=== PATIENT | female | born 1950 ===

== ENCOUNTER 2018-05-14 18:16 | Inpatient (IN) | payer MEDICARE ==
[2018-05-14] MEDS ORDERED: Sodium Chloride 0.9% 1,000 ML IV ONE (19:51)
--- NOTE | 2018-05-14 19:51 | C.PDOC ---
History Of Present Illness 67 year old female presents to the ED c/o fever, cough, congestion and dyspnea on exertion for the past 2-3 days. Patient also reports having decreased appetite able to speak in complete sentences. Patient states she still smokes 3/4 pack a day. Patient denies rash, headache, nausea, vomit, diarrhea, CP, weakness, numbness. Time Seen by Provider: 05/14/18 19:51 Chief Complaint (Nursing): Fever History Per: Patient History/Exam Limitations: no limitations Onset/Duration Of Symptoms: Days (2-3) Current Symptoms Are (Timing): Still Present Location Of Pain: Sinus/es Associated Symptoms: Fever, Cough, Sinus Drainage, Nasal Congestion Severity: Moderate Pain Scale Rating Of: 4 Recent travel outside of the [place]: No Additional History Per: Patient Past Medical History Reviewed: Historical Data, Nursing Documentation, Vital Signs Vital Signs: Last Vital Signs Temp 100.9 F H 05/14/18 18:25 Pulse 98 H 05/14/18 18:25 Resp 24 05/14/18 18:25 BP 121/71 05/14/18 18:25 Pulse Ox 91 L 05/14/18 18:25 - Medical History PMH: Asthma, HTN Surgical History: No Surg Hx Family History: States: Unknown Family Hx - Social History Hx Alcohol Use: No Hx Substance Use: No - Immunization History Hx Tetanus Toxoid Vaccination: No Hx Influenza Vaccination: No Hx Pneumococcal Vaccination: No Review Of Systems Constitutional: Positive for: Fever. Negative for: Chills ENT: Positive for: Nose Discharge, Nose Congestion Cardiovascular: Negative for: Chest Pain Respiratory: Positive for: Cough, SOB with Excertion. Negative for: Shortness of Breath Gastrointestinal: Negative for: Nausea, Vomiting, Abdominal Pain, Diarrhea Musculoskeletal: Negative for: Back Pain Skin: Negative for: Rash Neurological: Negative for: Weakness, Numbness, Headache, Dizziness Psych: Negative for: Anxiety Physical Exam - Physical Exam Appears: Non-toxic, No Acute Distress Skin: Warm, Dry Head: Normacephalic Eye(s): bilateral: Normal Inspection Oral Mucosa: Moist Throat: No Erythema, No Exudate Neck: Supple Chest: Symmetrical Cardiovascular: Rhythm Regular Respiratory: Decreased Breath Sounds, No Rales, Rhonchi, Wheezing Gastrointestinal/Abdominal: Soft, No Tenderness, No Guarding, No Rebound Back: Normal Inspection Extremity: Normal ROM Extremity: Bilateral: Atraumatic, Normal Color And Temperature, Normal ROM Neurological/Psych: Oriented x3, Normal Speech, Normal Cognition Gait: Steady ED Course And Treatment - Laboratory Results Result Diagrams: 05/14/18 20:33 05/14/18 20:33 ECG: Interpreted By Me, Viewed By Me ECG Rhythm: Sinus Rhythm (68), L BBB, Nonspecific Changes O2 Sat by Pulse Oximetry: 91 Pulse Ox Interpretation: Abnormal Interpretation Of Abnormal: placed on 2l nc - Radiology CXR: Interpreted by Me, Viewed By Me CXR Interpretation: Yes: Infiltrates (rll?), COPD, Other (unchanged from 2015). No: Fracture, Pnemothorax Progress Note: Plan: - VBG. - EKG. - CXR. - Labs. - IV fluids. - Tylenol 975 mg PO. - Blood culture. - Influenza A B. - UA Disposition Discussed With : Luisito Eller Comment: accepted the pt on his service and took over the care at 11:02PM Doctor Will See Patient In The: Hospital Counseled Patient/Family Regarding: Studies Performed, Diagnosis - Disposition Disposition: ELOPEMENT - ER ONLY Disposition Time: 19:51 Condition: FAIR Forms: [employer] (Tajik) - POA Present On Arrival: Poor Glycemic Control - Clinical Impression Clinical Impression: Fever, Pneumonia - Scribe Statement The provider has reviewed the documentation as recorded by the Scribe Kashmir Umanzor All medical record entries made by the Scribe were at my direction and personally dictated by me. I have reviewed the chart and agree that the record accurately reflects my personal performance of the history, physical exam, medical decision making, and the department course for this patient. I have also personally directed, reviewed, and agree with the discharge instructions and disposition. Decision To Admit - Pt Status Changed To: Hospital Disposition Of: Inpatient - Admit Certification Admit to Inpatient:: After my assessment, the patient will require hospitalization for at least two midnights. This is because of the severity of symptoms shown, intensity of services needed, and/or the medical risk in this patient being treated as an outpatient. - InPatient: Physician Admission Certification:: After my assessment, the patient will require hospitalization for at least two midnights. This is because of the severity of symptoms shown, intensity of services needed, and/or the medical risk in this patient being treated as an outpatient. - . Bed Request Type: Regular Admitting Physician: Luisito Eller Patient Diagnosis: Fever, Pneumonia
[2018-05-14 20:40] LABS: BASO # 0.1 K/uL (0.0-0.2); BASO % 0.4 % (0.0-2.0); EOS % 0.1 % (0.0-4.0); HEMOGLOBIN 14.9 g/dL (11.0-16.0); LYMPH # 0.8 K/uL (1.0-4.3); LYMPH % 5.2 % (20.0-40.0); MEAN CELL VOLUME 86.3 fL (81.0-99.0); MEAN CORPUSCULAR HEMOGLOBIN 28.6 pg (27.0-31.0); MEAN CORPUSCULAR HGB CONC 33.2 g/dL (33.0-37.0); MEAN PLATELET VOLUME 9.7 fL (7.2-11.7); MONO # 1.2 K/uL (0.0-0.8); MONO % 7.5 % (0.0-10.0); NEUT # 13.6 K/uL (1.8-7.0); NEUT % 86.8 % (50.0-75.0); PLATELET COUNT 205 K/uL (130-400); RBC 5.19 Mil/uL (3.80-5.20); RED CELL DISTRIBUTION WIDTH 13.6 % (11.5-14.5); WHITE BLOOD COUNT 15.7 K/uL (4.8-10.8)
[2018-05-14 20:42] LABS: VENOUS BLOOD GAS BASE EXCESS -6.2 mmol/L (0.0-2.0); VENOUS BLOOD GAS PCO2 30 mmHg (40-60); VENOUS BLOOD GAS PO2 47 mm/Hg (30-55); VENOUS BLOOD PH 7.38 (7.32-7.43)
[2018-05-14] MEDS ORDERED: Piperacillin/Tazobact 3.375 gm 100 ML IVPB STA (20:45)
--- NOTE | 2018-05-14 20:47 | RAD ---
HISTORY: SOB COMPARISON: Chest x-ray performed 08/07/14 TECHNIQUE: Chest, one view. FINDINGS: LUNGS: Patchy right greater than left lower lobe infiltrates. Please note that chest x-ray has limited sensitivity for the detection of pulmonary masses. PLEURA: No significant pleural effusion identified. No definite pneumothorax . CARDIOVASCULAR: Heart size appears within normal limits. Atherosclerotic calcifications present. OSSEOUS STRUCTURES: Degenerative changes. VISUALIZED UPPER ABDOMEN: Unremarkable. OTHER FINDINGS: None. IMPRESSION: Patchy right greater than left lower lobe infiltrate.
[2018-05-14 20:48] LABS: INR 1.4; PROTHROMBIN TIME 15.1 SECONDS (9.7-12.2)
[2018-05-14 21:04] LABS: BANDS 3 % (0-2); LYMPHOCYTE 9 % (20-40); MONOCYTE 4 % (0-10); NEUTROPHIL 84 % (50-75); PLATELET ESTIMATE NORMAL (NORMAL); TOTAL CELLS COUNTED 100
[2018-05-14 21:10] LABS: ALB/GLOB RATIO 1.2 (1.0-2.1); ALBUMIN 3.9 g/dL (3.5-5.0); ALT/SGPT 21 U/L (9-52); AST/SGOT 19 U/L (14-36); B-TYPE NATRIURETIC PEPTIDE 258 pg/mL (0-900); BLOOD UREA NITROGEN 17 mg/dL (7-17); CALCIUM 8.8 mg/dl (8.6-10.4); GFR NON-AFRICAN AMERICAN > 60
[2018-05-14] MEDS ORDERED: MethylPREDNISolone 40 mg Vial ONE (23:46)
[2018-05-14] MEDS: MethylPREDNISolone 40 mg Vial IVP SCH (23:47)
[2018-05-15 05:16] LABS: BASO % 0.2 % (0.0-2.0); EOS % 0.2 % (0.0-4.0); HEMOGLOBIN 14.5 g/dL (11.0-16.0); LYMPH # 0.6 K/uL (1.0-4.3); LYMPH % 3.6 % (20.0-40.0); MEAN CORPUSCULAR HEMOGLOBIN 28.6 pg (27.0-31.0); MEAN CORPUSCULAR HGB CONC 32.5 g/dL (33.0-37.0); MEAN PLATELET VOLUME 9.6 fL (7.2-11.7); MONO # 0.1 K/uL (0.0-0.8); MONO % 0.9 % (0.0-10.0); NEUT # 15.4 K/uL (1.8-7.0); NEUT % 95.1 % (50.0-75.0); PLATELET COUNT 180 K/uL (130-400); RBC 5.07 Mil/uL (3.80-5.20); RED CELL DISTRIBUTION WIDTH 13.5 % (11.5-14.5); WHITE BLOOD COUNT 16.1 K/uL (4.8-10.8)
[2018-05-15] MEDS ORDERED: Albuterol-Ipratrop 3 mg / 0.5 (3 ml) UD ONE ×2 (05:19→12:21)
[2018-05-15] MEDS: Albuterol-Ipratrop 3 mg / 0.5 (3 ml) UD INH PRN ×2 (05:22→12:37)
[2018-05-15 06:09] LABS: ALB/GLOB RATIO 1.1 (1.0-2.1); ALBUMIN 3.6 g/dL (3.5-5.0); ALT/SGPT 17 U/L (9-52); AST/SGOT 30 U/L (14-36); BLOOD UREA NITROGEN 17 mg/dL (7-17); CALCIUM 8.6 mg/dl (8.6-10.4); GFR NON-AFRICAN AMERICAN > 60
[2018-05-15 08:03] LABS: BANDS 8 % (0-2); BURR CELLS SLIGHT; LARGE PLATELETS PRESENT; LYMPHOCYTE 3 % (20-40); MONOCYTE 1 % (0-10); NEUTROPHIL 87 % (50-75); PLATELET ESTIMATE NORMAL (NORMAL); REACTIVE LYMPHOCYTES 1 % (0-0); TOTAL CELLS COUNTED 100
[2018-05-15] MEDS: MethylPREDNISolone 40 mg Vial IVP SCH ×3 (08:30→23:11)
[2018-05-15] MEDS ORDERED: MethylPREDNISolone 40 mg Vial ONE ×2 (08:33→15:43)
[2018-05-15] MEDS ORDERED: cefTRIAXone IV 1 gm in Dextros 50 ML IVPB SCH (10:00)
--- NOTE | 2018-05-15 14:37 | CP.PCM.HP ---
History of Present Illness - History of Present Illness History of Present Illness: 67 year old female presents to the ED c/o fever, cough, congestion and dyspnea on exertion for the past 2-3 days. Patient also reports having decreased appetite able to speak in complete sentences. Patient states she still smokes 3/4 pack a day Present on Admission - Present on Admission Any Indicators Present on Admission: No Review of Systems - Review of Systems All systems: reviewed and no additional remarkable complaints except (COUGH WHEEZING SHORTNESS OF AND LOW-GRADE FEVER) Past Patient History - Past Social History Smoking Status: Light Smoker < 10 Cigarettes Daily - CARDIAC Hx Hypertension: Yes - PULMONARY Hx Asthma: Yes - ENDOCRINE/METABOLIC Hx Endocrine Disorders: Yes Hx Diabetes Mellitus Type 2: Yes - PSYCHIATRIC Hx Substance Use: No - SURGICAL HISTORY Hx Surgeries: Yes Hx Cataract Extraction: Yes (left) Meds Allergies/Adverse Reactions: Allergies Allergy/AdvReac Type Severity Reaction Status Date / Time No Known Allergies Allergy Verified 05/14/18 19:18 Physical Exam - Constitutional Appears: Well - Head Exam Head Exam: ATRAUMATIC, NORMAL INSPECTION, NORMOCEPHALIC - Eye Exam Eye Exam: EOMI, Normal appearance, PERRL - ENT Exam ENT Exam: Mucous Membranes Moist, Normal Exam - Neck Exam Neck exam: Positive for: Normal Inspection - Respiratory Exam Respiratory Exam: Accessory Muscle Use, Prolonged Expiratory Phase, Rhonchi - Cardiovascular Exam Cardiovascular Exam: REGULAR RHYTHM - GI/Abdominal Exam GI & Abdominal Exam: Normal Bowel Sounds, Soft. absent: Tenderness - Extremities Exam Extremities exam: Positive for: normal inspection Results - Vital Signs Recent Vital Signs: Last Vital Signs Temp 98.3 F 05/14/18 23:47 Pulse 88 05/15/18 12:05 Resp 16 05/15/18 12:05 BP 115/56 L 05/15/18 12:05 Pulse Ox 95 05/15/18 12:05 - Labs Result Diagrams: 05/15/18 05:13 05/15/18 05:42 Labs: Laboratory Results - last 24 hr 05/14/18 05/14/18 05/14/18 20:33 20:33 20:33 WBC 15.7 H RBC 5.19 Hgb 14.9 Hct 44.8 MCV 86.3 MCH 28.6 MCHC 33.2 RDW 13.6 Plt Count 205 MPV 9.7 Neut % (Auto) 86.8 H Lymph % (Auto) 5.2 L [place] % (Auto) 7.5 Eos % (Auto) 0.1 Baso % (Auto) 0.4 Neut # (Auto) 13.6 H Lymph # (Auto) 0.8 L [place] # (Auto) 1.2 H Eos # (Auto) 0.0 Baso # (Auto) 0.1 Neutrophils % (Manual) 84 H Band Neutrophils % 3 H Lymphocytes % (Manual) 9 L Reactive Lymphs % Monocytes % (Manual) 4 Platelet Estimate Normal Large Platelets Bhargavi Cells PT 15.1 H INR 1.4 APTT 47 H pO2 VBG pH VBG pCO2 VBG HCO3 VBG Total CO2 VBG O2 Sat (Calc) VBG Base Excess VBG Potassium A-a O2 Difference Glucose Lactate FiO2 Crit Value Called To Crit Value Called By Crit Value Read Back Blood Gas Notified Time Sodium 134 Potassium 3.9 Chloride 99 Carbon Dioxide 25 Anion Gap 15 BUN 17 Creatinine 0.8 Est GFR ( Amer) > 60 Est GFR (Non-Af Amer) > 60 Random Glucose 154 H D Calcium 8.8 Total Bilirubin 0.8 AST 19 ALT 21 Alkaline Phosphatase 111 Troponin I < 0.0120 NT-Pro-B Natriuret Pep 258 Total Protein 7.1 Albumin 3.9 Globulin 3.3 Albumin/Globulin Ratio 1.2 Venous Blood Potassium Influenza Typ A,B (EIA) 05/14/18 05/14/18 05/15/18 20:33 20:38 05:13 WBC 16.1 H RBC 5.07 Hgb 14.5 Hct 44.6 MCV 88.0 MCH 28.6 MCHC 32.5 L RDW 13.5 Plt Count 180 MPV 9.6 Neut % (Auto) 95.1 H Lymph % (Auto) 3.6 L [place] % (Auto) 0.9 Eos % (Auto) 0.2 Baso % (Auto) 0.2 Neut # (Auto) 15.4 H Lymph # (Auto) 0.6 L [place] # (Auto) 0.1 Eos # (Auto) 0.0 Baso # (Auto) 0.0 Neutrophils % (Manual) 87 H Band Neutrophils % 8 H Lymphocytes % (Manual) 3 L Reactive Lymphs % 1 H Monocytes % (Manual) 1 Platelet Estimate Normal Large Platelets Present Bhargavi Cells Slight PT INR APTT pO2 47 VBG pH 7.38 VBG pCO2 30 L VBG HCO3 19.7 VBG Total CO2 18.6 L VBG O2 Sat (Calc) 91.2 H VBG Base Excess -6.2 L VBG Potassium 2.4 L* A-a O2 Difference 65.0 Glucose 116 H Lactate 1.0 FiO2 21.0 Crit Value Called To Sapira Crit Value Called By Business Controller Crit Value Read Back Y Blood Gas Notified Time 2040 Sodium 143.0 Potassium Chloride 114.0 H Carbon Dioxide Anion Gap BUN Creatinine Est GFR ( Amer) Est GFR (Non-Af Amer) Random Glucose Calcium Total Bilirubin AST ALT Alkaline Phosphatase Troponin I NT-Pro-B Natriuret Pep Total Protein Albumin Globulin Albumin/Globulin Ratio Venous Blood Potassium 2.4 L* Influenza Typ A,B (EIA) Negative for flu a/b 05/15/18 05:42 WBC RBC Hgb Hct MCV MCH MCHC RDW Plt Count MPV Neut % (Auto) Lymph % (Auto) [place] % (Auto) Eos % (Auto) Baso % (Auto) Neut # (Auto) Lymph # (Auto) [place] # (Auto) Eos # (Auto) Baso # (Auto) Neutrophils % (Manual) Band Neutrophils % Lymphocytes % (Manual) Reactive Lymphs % Monocytes % (Manual) Platelet Estimate Large Platelets [place] Cells PT INR APTT pO2 VBG pH VBG pCO2 VBG HCO3 VBG Total CO2 VBG O2 Sat (Calc) VBG Base Excess VBG Potassium A-a O2 Difference Glucose Lactate FiO2 Crit Value Called To Crit Value Called By Crit Value Read Back Blood Gas Notified Time Sodium 139 Potassium 4.5 Chloride 104 Carbon Dioxide 22 Anion Gap 17 BUN 17 Creatinine 0.6 L Est GFR ( Amer) > 60 Est GFR (Non-Af Amer) > 60 Random Glucose 137 H Calcium 8.6 Total Bilirubin 0.7 AST 30 ALT 17 Alkaline Phosphatase 110 Troponin I NT-Pro-B Natriuret Pep Total Protein 6.8 Albumin 3.6 Globulin 3.2 Albumin/Globulin Ratio 1.1 Venous Blood Potassium Influenza Typ A,B (EIA) Assessment & Plan (1) COPD (chronic obstructive pulmonary disease) with acute bronchitis Status: Acute (2) Pneumonia Status: Acute
[2018-05-15 15:05] LABS: URINE BILIRUBIN NEGATIVE (NEGATIVE); URINE BLOOD NEGATIVE (NEGATIVE); URINE CLARITY Clear (Clear); URINE COLOR Yellow (YELLOW); URINE GLUCOSE (UA) 3+ mg/dL (Normal); URINE LEUKOCYTE ESTERASE NEG Leu/uL (Negative); URINE PROTEIN NEGATIVE (NEGATIVE); URINE UROBILINOGEN NORMAL mg/dL (0.2-1.0)
--- NOTE | 2018-05-15 18:21 | CP.PCM.CON ---
History of Present Illness - History of Present Illness History of Present Illness: INFECTIOUS DISEASE CONSULT; HPI; 67 year old female,with history of asthma, hypertension, NIDDM who presented to the ED on 05/14/17 c/o fever, cough, congestion and dyspnea on exertion for the past 2-3 days. patient also complains of productive cough with dark greenish phlegm for the past few days. Patient has difficulty expectorating phlegm and feels nasal congestion and fullness. Patient also reports having decreased appetite able to speak in complete sentences. Patient states she still smokes 3/4 pack a day. Patient denies rash, headache, nausea, vomit, diarrhea, CP, weakness, numbness. chest x-ray on admission showed patchy right-sided more than left lower lob infiltrates. Rapid Influenza A and B Ag negative. Patient also had leukocytosis. Patient was appropriately cultured and started on IV Rocephin 1 g once a day daily.. INFECTIOUS DISEASE CONSULT REQUESTED FOR PNEUMONIA AND EXACERBATION OF BRONCHIAL ASTHMA. PMH: Asthma, HTN, DM-2 Surgical History: No Surg Hx Family History: States: Unknown Family Hx - Social History Hx Alcohol Use: No Hx Substance Use: No - Immunization History Hx Tetanus Toxoid Vaccination: No Hx Influenza Vaccination: No Hx Pneumococcal Vaccination: No ALLERGY : NKA Review of Systems - Constitutional Constitutional: Fever. absent: Chills - EENT Eyes: absent: Change in Vision Ears: absent: Ear Pain Nose/Mouth/Throat: Nasal Congestion, Nasal Obstruction. absent: Sinus Pain, Mouth Lesions - Cardiovascular Cardiovascular: Dyspnea on Exertion. absent: Chest Pain - Respiratory Respiratory: Cough, Wheezing, Change in Mucous Color. absent: Hemoptysis - Gastrointestinal Gastrointestinal: absent: Abdominal Pain, Diarrhea, Nausea, Odynophagia, Vomiting - Genitourinary Genitourinary: absent: Dysuria, Urinary Hesitance, Freq UTI - Musculoskeletal Musculoskeletal: absent: Myalgias - Neurological Neurological: absent: Headaches - Hematologic/Lymphatic Hematologic: As Per HPI. absent: Easy Bleeding, Easy Bruising Past Patient History - Past Social History Smoking Status: Light Smoker < 10 Cigarettes Daily - CARDIAC Hx Hypertension: Yes - PULMONARY Hx Asthma: Yes - ENDOCRINE/METABOLIC Hx Endocrine Disorders: Yes Hx Diabetes Mellitus Type 2: Yes - PSYCHIATRIC Hx Substance Use: No - SURGICAL HISTORY Hx Surgeries: Yes Hx Cataract Extraction: Yes (left) Meds Allergies/Adverse Reactions: Allergies Allergy/AdvReac Type Severity Reaction Status Date / Time No Known Allergies Allergy Verified 05/14/18 19:18 - Medications Medications: Current Medications Albuterol/Ipratropium (Duoneb 3 Mg/0.5 Mg (3 Ml) Ud) 3 ml INH RQ4 PRN PRN Reason: Shortness of Breath Last Admin: 05/15/18 12:37 Dose: 3 ml Heparin Sodium (Porcine) (Heparin) 5,000 units SC Q12 BHASKAR Ceftriaxone Sodium (Rocephin Iv 1 Gm Duplex) 50 mls @ 150 mls/hr IVPB DAILY BHASKAR; Protocol Last Admin: 05/15/18 12:10 Dose: 150 mls/hr Methylprednisolone (Solu-Medrol) 40 mg IVP Q8H BHASKAR Last Admin: 05/15/18 16:08 Dose: 40 mg Physical Exam - Constitutional Appears: No Acute Distress - Head Exam Head Exam: NORMAL INSPECTION - Eye Exam Eye Exam: EOMI, PERRL - ENT Exam ENT Exam: Normal Oropharynx - Neck Exam Neck exam: Positive for: Normal Inspection - Respiratory Exam Respiratory Exam: Prolonged Expiratory Phase, Rhonchi (BIBASILAR R>L) - Cardiovascular Exam Cardiovascular Exam: REGULAR RHYTHM, +S1, +S2 - GI/Abdominal Exam GI & Abdominal Exam: Normal Bowel Sounds, Soft. absent: Organomegaly - Extremities Exam Extremities exam: Positive for: normal capillary refill, pedal pulses present. Negative for: calf tenderness, pedal edema - Neurological Exam Neurological exam: Alert, CN II-XII Intact, Normal Gait, Oriented x3, Reflexes Normal - Psychiatric Exam Psychiatric exam: Normal Mood - Skin Skin Exam: Normal Color, Warm Results - Vital Signs Recent Vital Signs: Last Vital Signs Temp 98.8 F 05/15/18 14:50 Pulse 63 05/15/18 14:50 Resp 17 05/15/18 14:50 BP 112/51 L 05/15/18 14:50 Pulse Ox 96 05/15/18 14:50 - Labs Result Diagrams: 05/15/18 05:13 05/15/18 05:42 Labs: Laboratory Results - last 24 hr 05/14/18 05/14/18 05/14/18 20:33 20:33 20:33 WBC 15.7 H RBC 5.19 Hgb 14.9 Hct 44.8 MCV 86.3 MCH 28.6 MCHC 33.2 RDW 13.6 Plt Count 205 MPV 9.7 Neut % (Auto) 86.8 H Lymph % (Auto) 5.2 L [place] % (Auto) 7.5 Eos % (Auto) 0.1 Baso % (Auto) 0.4 Neut # (Auto) 13.6 H Lymph # (Auto) 0.8 L [place] # (Auto) 1.2 H Eos # (Auto) 0.0 Baso # (Auto) 0.1 Neutrophils % (Manual) 84 H Band Neutrophils % 3 H Lymphocytes % (Manual) 9 L Reactive Lymphs % Monocytes % (Manual) 4 Platelet Estimate Normal Large Platelets Bhargavi Cells PT 15.1 H INR 1.4 APTT 47 H pO2 VBG pH VBG pCO2 VBG HCO3 VBG Total CO2 VBG O2 Sat (Calc) VBG Base Excess VBG Potassium A-a O2 Difference Glucose Lactate FiO2 Crit Value Called To Crit Value Called By Crit Value Read Back Blood Gas Notified Time Sodium 134 Potassium 3.9 Chloride 99 Carbon Dioxide 25 Anion Gap 15 BUN 17 Creatinine 0.8 Est GFR ( Amer) > 60 Est GFR (Non-Af Amer) > 60 POC Glucose (mg/dL) Random Glucose 154 H D Calcium 8.8 Total Bilirubin 0.8 AST 19 ALT 21 Alkaline Phosphatase 111 Troponin I < 0.0120 NT-Pro-B Natriuret Pep 258 Total Protein 7.1 Albumin 3.9 Globulin 3.3 Albumin/Globulin Ratio 1.2 Venous Blood Potassium Urine Color Urine Clarity Urine pH Ur Specific [place] Urine Protein Urine Glucose (UA) Urine Ketones Urine Blood Urine Nitrate Urine Bilirubin Urine Urobilinogen Ur Leukocyte Esterase Urine WBC (Auto) Urine RBC (Auto) Influenza Typ A,B (EIA) 05/14/18 05/14/18 05/15/18 20:33 20:38 05:13 WBC 16.1 H RBC 5.07 Hgb 14.5 Hct 44.6 MCV 88.0 MCH 28.6 MCHC 32.5 L RDW 13.5 Plt Count 180 MPV 9.6 Neut % (Auto) 95.1 H Lymph % (Auto) 3.6 L [place] % (Auto) 0.9 Eos % (Auto) 0.2 Baso % (Auto) 0.2 Neut # (Auto) 15.4 H Lymph # (Auto) 0.6 L [place] # (Auto) 0.1 Eos # (Auto) 0.0 Baso # (Auto) 0.0 Neutrophils % (Manual) 87 H Band Neutrophils % 8 H Lymphocytes % (Manual) 3 L Reactive Lymphs % 1 H Monocytes % (Manual) 1 Platelet Estimate Normal Large Platelets Present Bhargavi Cells Slight PT INR APTT pO2 47 VBG pH 7.38 VBG pCO2 30 L VBG HCO3 19.7 VBG Total CO2 18.6 L VBG O2 Sat (Calc) 91.2 H VBG Base Excess -6.2 L VBG Potassium 2.4 L* A-a O2 Difference 65.0 Glucose 116 H Lactate 1.0 FiO2 21.0 Crit Value Called To Sapira Crit Value Called By Re Recording Mixer Crit Value Read Back Y Blood Gas Notified Time 2040 Sodium 143.0 Potassium Chloride 114.0 H Carbon Dioxide Anion Gap BUN Creatinine Est GFR ( Amer) Est GFR (Non-Af Amer) POC Glucose (mg/dL) Random Glucose Calcium Total Bilirubin AST ALT Alkaline Phosphatase Troponin I NT-Pro-B Natriuret Pep Total Protein Albumin Globulin Albumin/Globulin Ratio Venous Blood Potassium 2.4 L* Urine Color Urine Clarity Urine pH Ur Specific [place] Urine Protein Urine Glucose (UA) Urine Ketones Urine Blood Urine Nitrate Urine Bilirubin Urine Urobilinogen Ur Leukocyte Esterase Urine WBC (Auto) Urine RBC (Auto) Influenza Typ A,B (EIA) Negative for flu a/b 05/15/18 05/15/18 05/15/18 05:42 14:50 16:37 WBC RBC Hgb Hct MCV MCH MCHC RDW Plt Count MPV Neut % (Auto) Lymph % (Auto) [place] % (Auto) Eos % (Auto) Baso % (Auto) Neut # (Auto) Lymph # (Auto) [place] # (Auto) Eos # (Auto) Baso # (Auto) Neutrophils % (Manual) Band Neutrophils % Lymphocytes % (Manual) Reactive Lymphs % Monocytes % (Manual) Platelet Estimate Large Platelets [place] Cells PT INR APTT pO2 VBG pH VBG pCO2 VBG HCO3 VBG Total CO2 VBG O2 Sat (Calc) VBG Base Excess VBG Potassium A-a O2 Difference Glucose Lactate FiO2 Crit Value Called To Crit Value Called By Crit Value Read Back Blood Gas Notified Time Sodium 139 Potassium 4.5 Chloride 104 Carbon Dioxide 22 Anion Gap 17 BUN 17 Creatinine 0.6 L Est GFR ( Amer) > 60 Est GFR (Non-Af Amer) > 60 POC Glucose (mg/dL) 334 H Random Glucose 137 H Calcium 8.6 Total Bilirubin 0.7 AST 30 ALT 17 Alkaline Phosphatase 110 Troponin I NT-Pro-B Natriuret Pep Total Protein 6.8 Albumin 3.6 Globulin 3.2 Albumin/Globulin Ratio 1.1 Venous Blood Potassium Urine Color Yellow Urine Clarity Clear Urine pH 5.0 Ur Specific [place] 1.025 Urine Protein Negative Urine Glucose (UA) 3+ H Urine Ketones 1+ H Urine Blood Negative Urine Nitrate Negative Urine Bilirubin Negative Urine Urobilinogen Normal Ur Leukocyte Esterase Neg Urine WBC (Auto) 1 Urine RBC (Auto) < 1 Influenza Typ A,B (EIA) - Imaging and Cardiology Chest x-ray Status: Report reviewed by me (SEE REPORT.) Assessment & Plan (1) Pneumonia Status: Acute (2) Fever Status: Acute (3) Asthma dependent on inhaled steroids Status: Acute (4) Diabetes mellitus Status: Acute - Assessment and Plan (Free Text) Plan: PLAN; PANCULTURES SPUTUM gRAM STAIN AND CULTURE. AYPICAL TITERS ESR. CRP CONTINUE iv ROCEPHIN 1 G ONCE A DAY DAILY 05/14/18. ADD iv ZITHROMAX 500 MG IVPB DAILY 05/15/17. PATIENT ON iv sOLU-mEDROL PER PMD. dUOnEB TREATMENTS pULMONARY TOILET. WE'LL FOLLOW ALONG WITH YOU AND MAKE FURTHER RECOMMENDATIONS NEEDED. THANK YOU.
[2018-05-15] MEDS: Azithromycin 500 MG in Sodium Chloride 0.9% 250 ML IVPB SCH (21:00)
[2018-05-15] MEDS: Albuterol-Ipratrop 3 mg / 0.5 (3 ml) UD INH SCH (21:09)
[2018-05-15] MEDS: (Novolin R) Insulin Human Regular 100 units/ml vial SC SCH (21:47)
[2018-05-16] MEDS: Albuterol-Ipratrop 3 mg / 0.5 (3 ml) UD INH SCH ×6 (00:54→19:49)
[2018-05-16 01:15] VITALS: RESP 20
[2018-05-16] MEDS: MethylPREDNISolone 40 mg Vial IVP SCH ×3 (06:39→22:51)
[2018-05-16] MEDS: (Novolin R) Insulin Human Regular 100 units/ml vial SC SCH ×4 (08:22→21:39)
[2018-05-16 08:54] LABS: ALB/GLOB RATIO 1.2 (1.0-2.1); ALBUMIN 3.5 g/dL (3.5-5.0); ALT/SGPT 24 U/L (9-52); AST/SGOT 25 U/L (14-36); BLOOD UREA NITROGEN 22 mg/dL (7-17); CALCIUM 9.1 mg/dl (8.6-10.4); GFR NON-AFRICAN AMERICAN > 60
[2018-05-16] MEDS: cefTRIAXone IV 1 gm in Dextros 50 ML IVPB SCH ×2 (09:39→21:08)
[2018-05-16] MEDS: Azithromycin 500 MG in Sodium Chloride 0.9% 250 ML IVPB SCH (09:40)
--- NOTE | 2018-05-16 15:32 | CP.PCM.PN ---
Subjective - Date & Time of Evaluation Date of Evaluation: 05/16/18 Time of Evaluation: 15:30 - Subjective Subjective: CHIEF COMPLAINTS TODAY : Patient is coughing and wheezing with white thick expectoration ROS. HEENT : N. Resp : No hemoptysis Cardio : No anginal CP, PND, orthopnea, palpitation GI : No abd.pain, n/v ,diarrhea or GI bleeding . MANAGER BOOK : No headache, vertigo, focal deficit. Musculoskel : No joint swelling , Derm : No rash Psych : Normal affect. Ext : No swelling ,calf pain PE. Pt. is alert awake in no distress. V.S As noted in the chart Head ,ear nose,throat and eyes : Normal. Neck : Supple with normal carotids. Lungs: Bilateral basal crackles poor air entry with rhonchi Heart : S1 & S2 normal with S4. No murmur. Abd : Soft non tender with normal bowel sounds. Neuro : Moves all ext. with no localized deficit. Ext : No edema with intact pulses.Non tender calves Derm : No rashes or decubitus ulcer. LABS/RADIOLOGY: ASSESSMENT/PLAN : Continue IV antibiotic nebulizer and steroids Objective - Vital Signs/Intake and Output Vital Signs (last 24 hours): Temp Pulse Resp BP Pulse Ox 98.1 F 70 20 113/59 L 94 L 05/16/18 08:33 05/16/18 08:33 05/16/18 08:33 05/16/18 08:33 05/16/18 08:33 Intake and Output: 05/16/18 05/16/18 11:59 23:59 Intake Total 200 Balance 200 - Medications Medications: Current Medications Albuterol/Ipratropium (Duoneb 3 Mg/0.5 Mg (3 Ml) Ud) 3 ml INH RQ4 PRN PRN Reason: Shortness of Breath Last Admin: 05/15/18 12:37 Dose: 3 ml Albuterol/Ipratropium (Duoneb 3 Mg/0.5 Mg (3 Ml) Ud) 3 ml INH RQ4 BHASKAR Last Admin: 05/16/18 11:58 Dose: Not Given Heparin Sodium (Porcine) (Heparin) 5,000 units SC Q12 BHASKAR Last Admin: 05/16/18 09:39 Dose: 5,000 units Azithromycin 500 mg/ Sodium (Chloride) 250 mls @ 250 mls/hr IVPB DAILY BHASKAR; Protocol Last Admin: 05/16/18 09:40 Dose: 250 mls/hr Ceftriaxone Sodium (Rocephin Iv 1 Gm Duplex) 50 mls @ 100 mls/hr IVPB Q12H BHASKAR; Protocol Last Admin: 05/16/18 09:39 Dose: 100 mls/hr Insulin Human Regular (Novolin R) 0 unit SC ACHS BHASKAR; Protocol Last Admin: 05/16/18 12:27 Dose: 4 unit Lisinopril (Zestril) 10 mg PO DAILY BHASKAR Last Admin: 05/16/18 09:39 Dose: 10 mg Methylprednisolone (Solu-Medrol) 40 mg IVP Q8H BHASKAR Last Admin: 05/16/18 14:34 Dose: 40 mg Sitagliptin Phosphate (Januvia) 50 mg PO DAILY BHASKAR Last Admin: 05/16/18 09:39 Dose: 50 mg Trazodone HCl (Desyrel) 100 mg PO HS BHASKAR Last Admin: 05/15/18 21:34 Dose: 100 mg - Labs Labs: 05/15/18 05:13 05/16/18 08:06 PT 15.1 SECONDS (9.7-12.2) H 05/14/18 20:33 INR 1.4 05/14/18 20:33 APTT 47 SECONDS (21-34) H 05/14/18 20:33 Assessment and Plan (1) COPD (chronic obstructive pulmonary disease) with acute bronchitis Status: Acute (2) Pneumonia Status: Acute
--- NOTE | 2018-05-16 23:15 | CP.PCM.PN ---
Subjective - Date & Time of Evaluation Date of Evaluation: 05/16/18 Time of Evaluation: 23:15 - Subjective Subjective: CHIEF COMPLAINTS TODAY : AFEBRILE, C/O COUGH THICK SECRETIONS. "i cant cough it out " on duoneb treatments ROS. HEENT : N. Resp : No hemoptysis +VE COUGH Cardio : No anginal CP, PND, orthopnea, palpitation GI : No abd.pain, n/v ,diarrhea or GI bleeding . SUPERINTENDENT QUARRY : No headache, vertigo, focal deficit. Musculoskel : No joint swelling , Derm : No rash Psych : Normal affect. Ext : No swelling ,calf pain PE. Pt. is alert awake in no distress. V.S As noted in the chart Head ,ear nose,throat and eyes : Normal. Neck : Supple with normal carotids. Lungs: B/L EXPIRATORY WHEEZE / RHONCHI . Heart : S1 & S2 normal with S4. No murmur. Abd : Soft non tender with normal bowel sounds. Neuro : Moves all ext. with no localized deficit. Ext : No edema with intact pulses.Non tender calves Derm : No rashes or decubitus ulcer. LABS/RADIOLOGY: reviewed. WBC 16.1 ESR 48 ASSESSMENT/PLAN : Continue IV antibiotic on nebulizer and steroids. f/u CULTURES TO ADJUST ABX. Objective - Vital Signs/Intake and Output Vital Signs (last 24 hours): Temp Pulse Resp BP Pulse Ox 97.6 F 60 20 120/65 95 05/16/18 19:25 05/16/18 19:25 05/16/18 19:25 05/16/18 19:25 05/16/18 19:25 Intake and Output: 05/16/18 05/17/18 18:59 06:59 Intake Total 1000 500 Balance 1000 500 - Medications Medications: Current Medications Albuterol/Ipratropium (Duoneb 3 Mg/0.5 Mg (3 Ml) Ud) 3 ml INH RQ4 PRN PRN Reason: Shortness of Breath Last Admin: 05/15/18 12:37 Dose: 3 ml Albuterol/Ipratropium (Duoneb 3 Mg/0.5 Mg (3 Ml) Ud) 3 ml INH RQ4 [facility] Last Admin: 05/16/18 19:49 Dose: 3 ml Heparin Sodium (Porcine) (Heparin) 5,000 units SC Q12 [facility] Last Admin: 05/16/18 21:36 Dose: 5,000 units Azithromycin 500 mg/ Sodium (Chloride) 250 mls @ 250 mls/hr IVPB DAILY [facility]; Protocol Last Admin: 05/16/18 09:40 Dose: 250 mls/hr Ceftriaxone Sodium (Rocephin Iv 1 Gm Duplex) 50 mls @ 100 mls/hr IVPB Q12H [facility]; Protocol Last Admin: 05/16/18 21:08 Dose: 100 mls/hr Insulin Human Regular (Novolin R) 0 unit SC ACHS [facility]; Protocol Last Admin: 05/16/18 21:39 Dose: 2 unit Lisinopril (Zestril) 10 mg PO DAILY [facility] Last Admin: 05/16/18 09:39 Dose: 10 mg Methylprednisolone (Solu-Medrol) 40 mg IVP Q8H [facility] Last Admin: 05/16/18 22:51 Dose: 40 mg Sitagliptin Phosphate (Januvia) 50 mg PO DAILY [facility] Last Admin: 05/16/18 09:39 Dose: 50 mg Trazodone HCl (Desyrel) 100 mg PO HS [facility] Last Admin: 05/16/18 21:37 Dose: 100 mg - Labs Labs: 05/15/18 05:13 05/16/18 08:06 PT 15.1 SECONDS (9.7-12.2) H 05/14/18 20:33 INR 1.4 05/14/18 20:33 APTT 47 SECONDS (21-34) H 05/14/18 20:33 Assessment and Plan (1) Pneumonia Status: Acute (2) Fever Status: Acute (3) Asthma dependent on inhaled steroids Status: Acute (4) Diabetes mellitus Status: Acute
[2018-05-17] MEDS: Albuterol-Ipratrop 3 mg / 0.5 (3 ml) UD INH SCH ×6 (00:36→19:52)
[2018-05-17] MEDS: MethylPREDNISolone 40 mg Vial IVP SCH ×3 (06:31→23:51)
[2018-05-17 08:23] LABS: ALB/GLOB RATIO 1.2 (1.0-2.1); ALBUMIN 3.4 g/dL (3.5-5.0); ALT/SGPT 30 U/L (9-52); AST/SGOT 26 U/L (14-36); BLOOD UREA NITROGEN 22 mg/dL (7-17); CALCIUM 8.9 mg/dl (8.6-10.4); GFR NON-AFRICAN AMERICAN > 60
[2018-05-17] MEDS: (Novolin R) Insulin Human Regular 100 units/ml vial SC SCH ×4 (08:28→21:54)
[2018-05-17] MEDS: cefTRIAXone IV 1 gm in Dextros 50 ML IVPB SCH ×2 (10:14→21:24)
[2018-05-17] MEDS: Azithromycin 500 MG in Sodium Chloride 0.9% 250 ML IVPB SCH (10:19)
--- NOTE | 2018-05-17 12:20 | CARD ---
APPROVED REPORT Date of service: 05/14/2018 EKG Measurement Heart [id number] <Conclusion> Normal sinus rhythm Right atrial enlargement Left bundle branch block Abnormal ECG
--- NOTE | 2018-05-17 13:55 | CP.PCM.PN ---
Subjective - Date & Time of Evaluation Date of Evaluation: 05/17/18 Time of Evaluation: 13:55 - Subjective Subjective: CHIEF COMPLAINTS TODAY : Patient is coughing and wheezing with white thick expectoration ROS. HEENT : N. Resp : No hemoptysis Cardio : No anginal CP, PND, orthopnea, palpitation GI : No abd.pain, n/v ,diarrhea or GI bleeding . 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 Musculoskel : No joint swelling , Derm : No rash Psych : Normal affect. Ext : No swelling ,calf pain PE. Pt. is alert awake in no distress. V.S As noted in the chart Head ,ear nose,throat and eyes : Normal. Neck : Supple with normal carotids. Lungs: Bilateral basal crackles poor air entry with rhonchi Heart : S1 & S2 normal with S4. No murmur. Abd : Soft non tender with normal bowel sounds. Neuro : Moves all ext. with no localized deficit. Ext : No edema with intact pulses.Non tender calves Derm : No rashes or decubitus ulcer. LABS/RADIOLOGY: ASSESSMENT/PLAN : Continue IV antibiotic nebulizer and steroids Objective - Vital Signs/Intake and Output Vital Signs (last 24 hours): Temp Pulse Resp BP Pulse Ox 98 F 60 20 119/60 97 05/17/18 07:43 05/17/18 07:43 05/17/18 07:43 05/17/18 07:43 05/17/18 07:43 Intake and Output: 05/17/18 05/17/18 11:59 23:59 Intake Total 300 Balance 300 - Medications Medications: Current Medications Albuterol/Ipratropium (Duoneb 3 Mg/0.5 Mg (3 Ml) Ud) 3 ml INH RQ4 PRN PRN Reason: Shortness of Breath Last Admin: 05/15/18 12:37 Dose: 3 ml Albuterol/Ipratropium (Duoneb 3 Mg/0.5 Mg (3 Ml) Ud) 3 ml INH RQ4 [facility] Last Admin: 05/17/18 11:06 Dose: Not Given Heparin Sodium (Porcine) (Heparin) 5,000 units SC Q12 [facility] Last Admin: 05/17/18 10:10 Dose: 5,000 units Azithromycin 500 mg/ Sodium (Chloride) 250 mls @ 250 mls/hr IVPB DAILY [facility]; Protocol Last Admin: 05/17/18 10:19 Dose: 250 mls/hr Ceftriaxone Sodium (Rocephin Iv 1 Gm Duplex) 50 mls @ 100 mls/hr IVPB Q12H [facility]; Protocol Last Admin: 05/17/18 10:14 Dose: 100 mls/hr Insulin Human Regular (Novolin R) 0 unit SC ACHS [facility]; Protocol Last Admin: 05/17/18 08:28 Dose: 4 unit Lisinopril (Zestril) 10 mg PO DAILY [facility] Last Admin: 05/17/18 10:07 Dose: 10 mg Methylprednisolone (Solu-Medrol) 40 mg IVP Q8H [facility] Last Admin: 05/17/18 06:31 Dose: 40 mg Sitagliptin Phosphate (Januvia) 50 mg PO DAILY [facility] Last Admin: 05/17/18 10:07 Dose: 50 mg Trazodone HCl (Desyrel) 100 mg PO HS [facility] Last Admin: 05/16/18 21:37 Dose: 100 mg - Labs Labs: 05/15/18 05:13 05/17/18 07:53 PT 15.1 SECONDS (9.7-12.2) H 05/14/18 20:33 INR 1.4 05/14/18 20:33 APTT 47 SECONDS (21-34) H 05/14/18 20:33 Assessment and Plan (1) COPD (chronic obstructive pulmonary disease) with acute bronchitis Status: Acute (2) Pneumonia Status: Acute
--- NOTE | 2018-05-17 18:20 | CP.PCM.PN ---
Subjective - Date & Time of Evaluation Date of Evaluation: 05/17/18 Time of Evaluation: 18:20 - Subjective Subjective: CHIEF COMPLAINTS TODAY : AFEBRILE, FEELING SLIGHTLY BETTER. LESS WHEEZING ROS. HEENT : N. Resp : No hemoptysis +VE COUGH Cardio : No anginal CP, PND, orthopnea, palpitation GI : No abd.pain, n/v ,diarrhea or GI bleeding . BUTTONHOLER : No headache, vertigo, focal deficit. Musculoskel : No joint swelling , Derm : No rash Psych : Normal affect. Ext : No swelling ,calf pain PE. Pt. is alert awake in no distress. V.S As noted in the chart Head ,ear nose,throat and eyes : Normal. Neck : Supple with normal carotids. Lungs: B/L EXPIRATORY WHEEZE / RHONCHI . Heart : S1 & S2 normal with S4. No murmur. Abd : Soft non tender with normal bowel sounds. Neuro : Moves all ext. with no localized deficit. Ext : No edema with intact pulses.Non tender calves Derm : No rashes or decubitus ulcer. LABS/RADIOLOGY: reviewed. WBC 16.1 ESR 48 ASSESSMENT/PLAN : Continue IV antibiotic on nebulizer and steroids. f/u CULTURES TO ADJUST ABX. Objective - Vital Signs/Intake and Output Vital Signs (last 24 hours): Temp Pulse Resp BP Pulse Ox 97.7 F 59 L 20 119/57 L 96 05/17/18 16:00 05/17/18 16:00 05/17/18 16:00 05/17/18 16:00 05/17/18 16:00 Intake and Output: 05/17/18 05/17/18 06:59 18:59 Intake Total 500 300 Balance 500 300 - Medications Medications: Current Medications Albuterol/Ipratropium (Duoneb 3 Mg/0.5 Mg (3 Ml) Ud) 3 ml INH RQ4 PRN PRN Reason: Shortness of Breath Last Admin: 05/15/18 12:37 Dose: 3 ml Albuterol/Ipratropium (Duoneb 3 Mg/0.5 Mg (3 Ml) Ud) 3 ml INH RQ4 [facility] Last Admin: 05/17/18 16:49 Dose: 3 ml Heparin Sodium (Porcine) (Heparin) 5,000 units SC Q12 [facility] Last Admin: 05/17/18 10:10 Dose: 5,000 units Azithromycin 500 mg/ Sodium (Chloride) 250 mls @ 250 mls/hr IVPB DAILY [facility]; Protocol Last Admin: 05/17/18 10:19 Dose: 250 mls/hr Ceftriaxone Sodium (Rocephin Iv 1 Gm Duplex) 50 mls @ 100 mls/hr IVPB Q12H [facility]; Protocol Last Admin: 05/17/18 10:14 Dose: 100 mls/hr Insulin Human Regular (Novolin R) 0 unit SC ACHS [facility]; Protocol Last Admin: 05/17/18 16:36 Dose: 3 unit Lisinopril (Zestril) 10 mg PO DAILY [facility] Last Admin: 05/17/18 10:07 Dose: 10 mg Methylprednisolone (Solu-Medrol) 40 mg IVP Q8H [facility] Last Admin: 05/17/18 15:36 Dose: 40 mg Sitagliptin Phosphate (Januvia) 50 mg PO DAILY [facility] Last Admin: 05/17/18 10:07 Dose: 50 mg Trazodone HCl (Desyrel) 100 mg PO HS [facility] Last Admin: 05/16/18 21:37 Dose: 100 mg - Labs Labs: 05/15/18 05:13 05/17/18 07:53 PT 15.1 SECONDS (9.7-12.2) H 05/14/18 20:33 INR 1.4 05/14/18 20:33 APTT 47 SECONDS (21-34) H 05/14/18 20:33 Assessment and Plan (1) Pneumonia Status: Acute (2) Fever Status: Acute (3) Asthma dependent on inhaled steroids Status: Acute (4) Diabetes mellitus Status: Acute
[2018-05-18] MEDS: Albuterol-Ipratrop 3 mg / 0.5 (3 ml) UD INH SCH ×6 (00:15→20:11)
[2018-05-18 06:58] LABS: ALB/GLOB RATIO 1.2 (1.0-2.1); ALBUMIN 3.3 g/dL (3.5-5.0); ALT/SGPT 34 U/L (9-52); AST/SGOT 30 U/L (14-36); BLOOD UREA NITROGEN 18 mg/dL (7-17); CALCIUM 8.7 mg/dl (8.6-10.4); GFR NON-AFRICAN AMERICAN > 60
[2018-05-18] MEDS: MethylPREDNISolone 40 mg Vial IVP SCH ×2 (08:00→16:19)
[2018-05-18] MEDS: (Novolin R) Insulin Human Regular 100 units/ml vial SC SCH ×4 (08:30→21:45)
[2018-05-18] MEDS: cefTRIAXone IV 1 gm in Dextros 50 ML IVPB SCH ×2 (09:33→21:34)
[2018-05-18] MEDS: Azithromycin 500 MG in Sodium Chloride 0.9% 250 ML IVPB SCH (10:42)
--- NOTE | 2018-05-18 11:41 | CP.PCM.PN ---
Subjective - Date & Time of Evaluation Date of Evaluation: 05/18/18 Time of Evaluation: 11:41 - Subjective Subjective: CHIEF COMPLAINTS TODAY : Patient is coughing and wheezing with white thick expectoration ROS. HEENT : N. Resp : No hemoptysis Cardio : No anginal CP, PND, orthopnea, palpitation GI : No abd.pain, n/v ,diarrhea or GI bleeding . CASINO PORTER : No headache, vertigo, focal deficit. Musculoskel : No joint swelling , Derm : No rash Psych : Normal affect. Ext : No swelling ,calf pain PE. Pt. is alert awake in no distress. V.S As noted in the chart Head ,ear nose,throat and eyes : Normal. Neck : Supple with normal carotids. Lungs: Bilateral basal crackles poor air entry with rhonchi Heart : S1 & S2 normal with S4. No murmur. Abd : Soft non tender with normal bowel sounds. Neuro : Moves all ext. with no localized deficit. Ext : No edema with intact pulses.Non tender calves Derm : No rashes or decubitus ulcer. LABS/RADIOLOGY: ASSESSMENT/PLAN : Continue IV antibiotic nebulizer and steroids Objective - Vital Signs/Intake and Output Vital Signs (last 24 hours): Temp Pulse Resp BP Pulse Ox 98.2 F 61 20 130/73 96 05/18/18 08:08 05/18/18 08:08 05/18/18 08:08 05/18/18 08:08 05/18/18 08:08 Intake and Output: 05/17/18 05/18/18 23:59 11:59 Intake Total 400 10 Balance 400 10 - Medications Medications: Current Medications Albuterol/Ipratropium (Duoneb 3 Mg/0.5 Mg (3 Ml) Ud) 3 ml INH RQ4 PRN PRN Reason: Shortness of Breath Last Admin: 05/15/18 12:37 Dose: 3 ml Albuterol/Ipratropium (Duoneb 3 Mg/0.5 Mg (3 Ml) Ud) 3 ml INH RQ4 [facility] Last Admin: 05/18/18 11:39 Dose: 3 ml Heparin Sodium (Porcine) (Heparin) 5,000 units SC Q12 [facility] Last Admin: 05/18/18 09:33 Dose: 5,000 units Azithromycin 500 mg/ Sodium (Chloride) 250 mls @ 250 mls/hr IVPB DAILY [facility]; Protocol Last Admin: 05/18/18 10:42 Dose: 250 mls/hr Ceftriaxone Sodium (Rocephin Iv 1 Gm Duplex) 50 mls @ 100 mls/hr IVPB Q12H [facility]; Protocol Last Admin: 05/18/18 09:33 Dose: 100 mls/hr Insulin Human Regular (Novolin R) 0 unit SC ACHS [facility]; Protocol Last Admin: 05/18/18 08:30 Dose: 4 unit Lisinopril (Zestril) 10 mg PO DAILY [facility] Last Admin: 05/18/18 09:33 Dose: 10 mg Methylprednisolone (Solu-Medrol) 40 mg IVP Q8H [facility] Last Admin: 05/18/18 08:00 Dose: 40 mg Sitagliptin Phosphate (Januvia) 50 mg PO DAILY [facility] Last Admin: 05/18/18 09:33 Dose: 50 mg Trazodone HCl (Desyrel) 100 mg PO HS [facility] Last Admin: 05/17/18 21:30 Dose: 100 mg - Labs Labs: 05/15/18 05:13 05/18/18 06:35 PT 15.1 SECONDS (9.7-12.2) H 05/14/18 20:33 INR 1.4 05/14/18 20:33 APTT 47 SECONDS (21-34) H 05/14/18 20:33 Assessment and Plan (1) COPD (chronic obstructive pulmonary disease) with acute bronchitis Status: Acute (2) Pneumonia Status: Acute
--- NOTE | 2018-05-18 12:17 | CP.PCM.PN ---
Subjective - Date & Time of Evaluation Date of Evaluation: 05/18/18 Time of Evaluation: 12:16 - Subjective Subjective: CHIEF COMPLAINTS TODAY : AFEBRILE, LESS COUGH LESS WHEEZING ROS. HEENT : N. Resp : No hemoptysis +VE COUGH Cardio : No anginal CP, PND, orthopnea, palpitation GI : No abd.pain, n/v ,diarrhea or GI bleeding . TELEPHONE ORDER CLERK ROOM SERVICE : No headache, vertigo, focal deficit. Musculoskel : No joint swelling , Derm : No rash Psych : Normal affect. Ext : No swelling ,calf pain PE. Pt. is alert awake in no distress. V.S As noted in the chart Head ,ear nose,throat and eyes : Normal. Neck : Supple with normal carotids. Lungs: B/L EXPIRATORY WHEEZE / RHONCHI . Heart : S1 & S2 normal with S4. No murmur. Abd : Soft non tender with normal bowel sounds. Neuro : Moves all ext. with no localized deficit. Ext : No edema with intact pulses.Non tender calves Derm : No rashes or decubitus ulcer. LABS/RADIOLOGY: reviewed. WBC 16.1 ESR 48 ASSESSMENT/PLAN : Continue IV antibiotic on nebulizer and steroids. f/u CULTURES TO ADJUST ABX. F/U CXR IN AM. Objective - Vital Signs/Intake and Output Vital Signs (last 24 hours): Temp Pulse Resp BP Pulse Ox 98.2 F 61 20 130/73 96 05/18/18 08:08 05/18/18 08:08 05/18/18 08:08 05/18/18 08:08 05/18/18 08:08 Intake and Output: 05/18/18 05/18/18 06:59 18:59 Intake Total 410 Balance 410 - Medications Medications: Current Medications Albuterol/Ipratropium (Duoneb 3 Mg/0.5 Mg (3 Ml) Ud) 3 ml INH RQ4 PRN PRN Reason: Shortness of Breath Last Admin: 05/15/18 12:37 Dose: 3 ml Albuterol/Ipratropium (Duoneb 3 Mg/0.5 Mg (3 Ml) Ud) 3 ml INH RQ4 [facility] Last Admin: 05/18/18 11:39 Dose: 3 ml Heparin Sodium (Porcine) (Heparin) 5,000 units SC Q12 [facility] Last Admin: 05/18/18 09:33 Dose: 5,000 units Azithromycin 500 mg/ Sodium (Chloride) 250 mls @ 250 mls/hr IVPB DAILY [facility]; Protocol Last Admin: 05/18/18 10:42 Dose: 250 mls/hr Ceftriaxone Sodium (Rocephin Iv 1 Gm Duplex) 50 mls @ 100 mls/hr IVPB Q12H [facility]; Protocol Last Admin: 05/18/18 09:33 Dose: 100 mls/hr Insulin Human Regular (Novolin R) 0 unit SC ACHS [facility]; Protocol Last Admin: 05/18/18 08:30 Dose: 4 unit Lisinopril (Zestril) 10 mg PO DAILY [facility] Last Admin: 05/18/18 09:33 Dose: 10 mg Methylprednisolone (Solu-Medrol) 40 mg IVP Q8H [facility] Last Admin: 05/18/18 08:00 Dose: 40 mg Sitagliptin Phosphate (Januvia) 50 mg PO DAILY [facility] Last Admin: 05/18/18 09:33 Dose: 50 mg Trazodone HCl (Desyrel) 100 mg PO HS [facility] Last Admin: 05/17/18 21:30 Dose: 100 mg - Labs Labs: 05/15/18 05:13 05/18/18 06:35 PT 15.1 SECONDS (9.7-12.2) H 05/14/18 20:33 INR 1.4 05/14/18 20:33 APTT 47 SECONDS (21-34) H 05/14/18 20:33 Assessment and Plan (1) Pneumonia Status: Acute (2) Fever Status: Acute (3) Asthma dependent on inhaled steroids Status: Acute (4) Diabetes mellitus Status: Acute
[2018-05-19] MEDS: MethylPREDNISolone 40 mg Vial IVP SCH ×3 (00:19→16:30)
[2018-05-19] MEDS: Albuterol-Ipratrop 3 mg / 0.5 (3 ml) UD INH SCH ×6 (00:30→21:01)
[2018-05-19 07:41] LABS: ALB/GLOB RATIO 1.3 (1.0-2.1); ALBUMIN 3.4 g/dL (3.5-5.0); ALT/SGPT 56 U/L (9-52); AST/SGOT 42 U/L (14-36); BLOOD UREA NITROGEN 20 mg/dL (7-17); CALCIUM 8.9 mg/dl (8.6-10.4); GFR NON-AFRICAN AMERICAN > 60
[2018-05-19] MEDS: (Novolin R) Insulin Human Regular 100 units/ml vial SC SCH ×4 (08:30→22:05)
[2018-05-19] MEDS: cefTRIAXone IV 1 gm in Dextros 50 ML IVPB SCH ×2 (09:37→21:10)
[2018-05-19] MEDS: Azithromycin 500 MG in Sodium Chloride 0.9% 250 ML IVPB SCH (10:06)
--- NOTE | 2018-05-19 11:21 | RAD ---
Date of service: 05/19/2018 HISTORY: pneumonia COMPARISON: Portable chest 05/14/2018. FINDINGS: LUNGS: No active pulmonary disease. PLEURA: No significant pleural effusion identified, no pneumothorax apparent. CARDIOVASCULAR: No aortic atherosclerotic calcification present. Normal cardiac size. No pulmonary vascular congestion. OSSEOUS STRUCTURES: No significant abnormalities. VISUALIZED UPPER ABDOMEN: No significant abnormality. OTHER FINDINGS: None. IMPRESSION: No acute cardiopulmonary disease appreciable including bilateral bases.
--- NOTE | 2018-05-19 11:47 | CP.PCM.DIS ---
Provider - Provider Date of Admission: 05/14/18 23:20 Attending physician: Luisito Eller MD Consults: 05/15/18 14:32 Infectious Disease Consult Routine Comment: Consulting Provider: Moris James Consulting Physician: Moris James Reason for Consult: TERESITA PNEUMONIA Time Spent in preparation of Discharge (in minutes): 32 Diagnosis - Discharge Diagnosis (1) COPD (chronic obstructive pulmonary disease) with acute bronchitis Status: Acute (2) Pneumonia Status: Acute Hospital Course - Lab Results Lab Results: Micro Results 05/14/18 21:00 Blood Blood Culture - Preliminary NO GROWTH AFTER 4 DAYS 05/14/18 20:30 Blood Blood Culture - Preliminary NO GROWTH AFTER 4 DAYS 05/16/18 10:02 Sputum Gram Stain - Final 05/16/18 10:02 Sputum Sputum Culture - Final NORMAL ORAL [place] 05/15/18 21:03 Nose MRSA Culture (Admit) - Final MRSA NOT DETECTED Most Recent Lab Values WBC 16.1 K/uL (4.8-10.8) H 05/15/18 05:13 RBC 5.07 Mil/uL (3.80-5.20) 05/15/18 05:13 Hgb 14.5 g/dL (11.0-16.0) 05/15/18 05:13 Hct 44.6 % (34.0-47.0) 05/15/18 05:13 MCV 88.0 fL (81.0-99.0) 05/15/18 05:13 MCH 28.6 pg (27.0-31.0) 05/15/18 05:13 MCHC 32.5 g/dL (33.0-37.0) L 05/15/18 05:13 RDW 13.5 % (11.5-14.5) 05/15/18 05:13 Plt Count 180 K/uL (130-400) 05/15/18 05:13 MPV 9.6 fL (7.2-11.7) 05/15/18 05:13 Neut % (Auto) 95.1 % (50.0-75.0) H 05/15/18 05:13 Lymph % (Auto) 3.6 % (20.0-40.0) L 05/15/18 05:13 Schuyler % (Auto) 0.9 % (0.0-10.0) 05/15/18 05:13 Eos % (Auto) 0.2 % (0.0-4.0) 05/15/18 05:13 Baso % (Auto) 0.2 % (0.0-2.0) 05/15/18 05:13 Neut # (Auto) 15.4 K/uL (1.8-7.0) H 05/15/18 05:13 Lymph # (Auto) 0.6 K/uL (1.0-4.3) L 05/15/18 05:13 Schuyler # (Auto) 0.1 K/uL (0.0-0.8) 05/15/18 05:13 Eos # (Auto) 0.0 K/uL (0.0-0.7) 05/15/18 05:13 Baso # (Auto) 0.0 K/uL (0.0-0.2) 05/15/18 05:13 Neutrophils % (Manual) 87 % (50-75) H 05/15/18 05:13 Band Neutrophils % 8 % (0-2) H 05/15/18 05:13 Lymphocytes % (Manual) 3 % (20-40) L 05/15/18 05:13 Reactive Lymphs % 1 % (0-0) H 05/15/18 05:13 Monocytes % (Manual) 1 % (0-10) 05/15/18 05:13 Platelet Estimate Normal (NORMAL) 05/15/18 05:13 Large Platelets Present 05/15/18 05:13 Bhargavi Cells Slight 05/15/18 05:13 ESR 48 mm/hr (0-20) H 05/16/18 08:06 PT 15.1 SECONDS (9.7-12.2) H 05/14/18 20:33 INR 1.4 05/14/18 20:33 APTT 47 SECONDS (21-34) H 05/14/18 20:33 pO2 47 mm/Hg (30-55) 05/14/18 20:38 VBG pH 7.38 (7.32-7.43) 05/14/18 20:38 VBG pCO2 30 mmHg (40-60) L 05/14/18 20:38 VBG HCO3 19.7 mmol/L 05/14/18 20:38 VBG Total CO2 18.6 mmol/L (22-28) L 05/14/18 20:38 VBG O2 Sat (Calc) 91.2 % (40-65) H 05/14/18 20:38 VBG Base Excess -6.2 mmol/L (0.0-2.0) L 05/14/18 20:38 VBG Potassium 2.4 mmol/L (3.6-5.2) L* 05/14/18 20:38 A-a O2 Difference 65.0 mm/Hg 05/14/18 20:38 Sodium 143.0 mmol/l (132-148) 05/14/18 20:38 Chloride 114.0 mmol/L (98-107) H 05/14/18 20:38 Glucose 116 mg/dl (65-105) H 05/14/18 20:38 Lactate 1.0 mmol/L (0.7-2.1) 05/14/18 20:38 FiO2 21.0 % 05/14/18 20:38 Crit Value Called To Sapira 05/14/18 20:38 Crit Value Called By Photography Coordinator 05/14/18 20:38 Crit Value Read Back Y 05/14/18 20:38 Blood Gas Notified Time 204005/14/18 20:38 Sodium 136 mmol/L (132-148) 05/19/18 07:02 Potassium 4.9 mmol/L (3.6-5.2) 05/19/18 07:02 Chloride 97 mmol/L (98-107) L 05/19/18 07:02 Carbon Dioxide 33 mmol/L (22-30) H 05/19/18 07:02 Anion Gap 11 (10-20) 05/19/18 07:02 BUN 20 mg/dL (7-17) H 05/19/18 07:02 Creatinine 0.7 mg/dL (0.7-1.2) 05/19/18 07:02 Est GFR ( Amer) > 60 05/19/18 07:02 Est GFR (Non-Af Amer) > 60 05/19/18 07:02 POC Glucose (mg/dL) 262 mg/dL (65-110) H 05/19/18 11:39 Random Glucose 288 mg/dL (65-105) H 05/19/18 07:02 Calcium 8.9 mg/dl (8.6-10.4) 05/19/18 07:02 Magnesium 2.4 mg/dL (1.6-2.3) H 05/19/18 07:02 Total Bilirubin 0.4 mg/dL (0.2-1.3) 05/19/18 07:02 AST 42 U/L (14-36) H D 05/19/18 07:02 ALT 56 U/L (9-52) H D 05/19/18 07:02 Alkaline Phosphatase 94 U/L (38-126) 05/19/18 07:02 Troponin I < 0.0120 ng/mL (0.00-0.120) 05/14/18 20:33 C-React Prot High Sens > 15.00 mg/L (1.00-3.00) H 05/16/18 08:06 NT-Pro-B Natriuret Pep 258 pg/mL (0-900) 05/14/18 20:33 Total Protein 6.1 g/dL (6.3-8.3) L 05/19/18 07:02 Albumin 3.4 g/dL (3.5-5.0) L 05/19/18 07:02 Globulin 2.7 gm/dL (2.2-3.9) 05/19/18 07:02 Albumin/Globulin Ratio 1.3 (1.0-2.1) 05/19/18 07:02 Venous Blood Potassium 2.4 mmol/L (3.6-5.2) L* 05/14/18 20:38 Urine Color Yellow (YELLOW) 05/15/18 14:50 Urine Clarity Clear (Clear) 05/15/18 14:50 Urine pH 5.0 (5.0-8.0) 05/15/18 14:50 Ur Specific [place] 1.025 (1.003-1.030) 05/15/18 14:50 Urine Protein Negative mg/dL (NEGATIVE) 05/15/18 14:50 Urine Glucose (UA) 3+ mg/dL (Normal) H 05/15/18 14:50 Urine Ketones 1+ mg/dL (NEGATIVE) H 05/15/18 14:50 Urine Blood Negative (NEGATIVE) 05/15/18 14:50 Urine Nitrate Negative (NEGATIVE) 05/15/18 14:50 Urine Bilirubin Negative (NEGATIVE) 05/15/18 14:50 Urine Urobilinogen Normal mg/dL (0.2-1.0) 05/15/18 14:50 Ur Leukocyte Esterase Neg Agnieszka/uL (Negative) 05/15/18 14:50 Urine WBC (Auto) 1 /hpf (0-5) 05/15/18 14:50 Urine RBC (Auto) < 1 /hpf (0-3) 05/15/18 14:50 Influenza Typ A,B (EIA) Negative for flu a/b (NEGATIVE) 05/14/18 20:33 Mycoplasma pneumon IgM Negative (NEGATIVE) 05/16/18 08:06 - Hospital Course Hospital Course: 67 year old female presents to the ED c/o fever, cough, congestion and dyspnea on exertion for the past 2-3 days. Patient also reports having decreased appetite able to speak in complete sentences. Patient states she still smokes 3/4 pack a day Patient was treated with IV steroids antibiotics and nebulizer. Patient improved on above therapy repeat chest x-ray showed resolution of the pneumonia. Septic workup was negative. Patient will be sent on by mouth antibiotics prednisone and inhaler. Patient was strongly recommended to discontinue smoking 05/20/18 pt was d/c next day due to family issue Discharge Exam - Head Exam Head Exam: NORMAL INSPECTION Discharge Plan - Discharge Medications Prescriptions: SITagliptin [Januvia] 50 mg PO DAILY 30 Days tab Methylprednisolone [Medrol Dose Pack (21 tabs)] 4 mg PO DAILY #21 mg Azithromycin [Z-Caleb] 250 mg PO DAILY #6 tab Lisinopril [Zestril] 10 mg PO DAILY 30 Days tab - Follow Up Plan Condition: FAIR Disposition: HOME/ ROUTINE Instructions: Sitagliptin, Azithromycin (Systemic), Asthma, Adult (DC), Exacerbation of COPD (DC), Lisinopril, Methylprednisolone, Community-Acquired Pneumonia, Adult (DC) Additional Instructions: FOLLOW UP WITH DR ELLER IN 1-2 WEEKS -----CALL FOR APPOINTMENT FOLLOW UP WITH DR JAMES IN HER OFFICE ----CALL FOR APPOINTMENT CONTINUE HOME MEDICATION NEW PRESCRIPTION GIVEN Z PACK PO DAILY DIRECTED LISINOPRIL 10 MG PO DAILY MEDROL DOSE PACK PO DIRECTED JANUVIA 50 MG PO DAILY ACTIVITY TOLERATED CALL DR ELLER OR GO TO THE EMERGENCY ROOM IF SYMPTOM RETURN OR WORSENING Referrals: Moris James MD [Staff Provider] - Luisito Eller MD [Staff Provider] -
--- NOTE | 2018-05-19 12:12 | CP.PCM.PN ---
Subjective - Date & Time of Evaluation Date of Evaluation: 05/19/18 Time of Evaluation: 12:12 - Subjective Subjective: CHIEF COMPLAINTS TODAY : AFEBRILE, LESS COUGH LESS WHEEZING FEELING BETTER. CXR 05/19/18- DONE NO ACUTE INFILTRATES ROS. HEENT : N. Resp : No hemoptysis +VE COUGH Cardio : No anginal CP, PND, orthopnea, palpitation GI : No abd.pain, n/v ,diarrhea or GI bleeding . 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 Musculoskel : No joint swelling , Derm : No rash Psych : Normal affect. Ext : No swelling ,calf pain PE. Pt. is alert awake in no distress. V.S As noted in the chart Head ,ear nose,throat and eyes : Normal. Neck : Supple with normal carotids. Lungs: B/L EXPIRATORY WHEEZE / RHONCHI . Heart : S1 & S2 normal with S4. No murmur. Abd : Soft non tender with normal bowel sounds. Neuro : Moves all ext. with no localized deficit. Ext : No edema with intact pulses.Non tender calves Derm : No rashes or decubitus ulcer. LABS/RADIOLOGY: reviewed. SPUTUM -N. LAKIA WBC 16.1 ESR 48 ASSESSMENT/PLAN : CAN SWITCH TO PO Z-PACK ON DISCHARGE IN AM. REPEAT CBC W DIFF LFTS /BMP on nebulizer steroids taper off as per PMD. CPM, Objective - Vital Signs/Intake and Output Vital Signs (last 24 hours): Temp Pulse Resp BP Pulse Ox 97.8 F 64 20 131/65 97 05/19/18 08:13 05/19/18 08:13 05/19/18 08:13 05/19/18 08:13 05/19/18 08:13 Intake and Output: 05/19/18 05/19/18 06:59 18:59 Intake Total 500 300 Balance 500 300 - Medications Medications: Current Medications Albuterol/Ipratropium (Duoneb 3 Mg/0.5 Mg (3 Ml) Ud) 3 ml INH RQ4 PRN PRN Reason: Shortness of Breath Last Admin: 05/15/18 12:37 Dose: 3 ml Albuterol/Ipratropium (Duoneb 3 Mg/0.5 Mg (3 Ml) Ud) 3 ml INH RQ4 [facility] Last Admin: 05/19/18 08:50 Dose: 3 ml Heparin Sodium (Porcine) (Heparin) 5,000 units SC Q12 [facility] Last Admin: 05/19/18 09:38 Dose: 5,000 units Azithromycin 500 mg/ Sodium (Chloride) 250 mls @ 250 mls/hr IVPB DAILY [facility]; Protocol Last Admin: 05/19/18 10:06 Dose: 250 mls/hr Ceftriaxone Sodium (Rocephin Iv 1 Gm Duplex) 50 mls @ 100 mls/hr IVPB Q12H [facility]; Protocol Last Admin: 05/19/18 09:37 Dose: 100 mls/hr Insulin Human Regular (Novolin R) 0 unit SC ACHS [facility]; Protocol Last Admin: 05/19/18 08:30 Dose: 6 unit Lisinopril (Zestril) 10 mg PO DAILY [facility] Last Admin: 05/19/18 09:38 Dose: 10 mg Methylprednisolone (Solu-Medrol) 40 mg IVP Q8H [facility] Last Admin: 05/19/18 08:30 Dose: 40 mg Sitagliptin Phosphate (Januvia) 50 mg PO DAILY [facility] Last Admin: 05/19/18 09:38 Dose: 50 mg Trazodone HCl (Desyrel) 100 mg PO HS [facility] Last Admin: 05/18/18 21:41 Dose: 100 mg - Labs Labs: 05/15/18 05:13 05/19/18 07:02 PT 15.1 SECONDS (9.7-12.2) H 05/14/18 20:33 INR 1.4 05/14/18 20:33 APTT 47 SECONDS (21-34) H 05/14/18 20:33 Assessment and Plan (1) Pneumonia Status: Acute (2) Fever Status: Acute (3) Asthma dependent on inhaled steroids Status: Acute (4) Diabetes mellitus Status: Acute
[2018-05-20] MEDS: MethylPREDNISolone 40 mg Vial IVP SCH ×2 (00:31→07:05)
[2018-05-20] MEDS: Albuterol-Ipratrop 3 mg / 0.5 (3 ml) UD INH SCH ×4 (00:45→11:58)
[2018-05-20] MEDS: (Novolin R) Insulin Human Regular 100 units/ml vial SC SCH ×2 (06:46→12:27)
[2018-05-20 07:12] LABS: BASO % 0.2 % (0.0-2.0); EOS % 0.1 % (0.0-4.0); LYMPH # 0.4 K/uL (1.0-4.3); LYMPH % 5.3 % (20.0-40.0); MEAN CELL VOLUME 88.2 fL (81.0-99.0); MEAN CORPUSCULAR HEMOGLOBIN 29.2 pg (27.0-31.0); MEAN CORPUSCULAR HGB CONC 33.1 g/dL (33.0-37.0); MEAN PLATELET VOLUME 9.6 fL (7.2-11.7); MONO # 0.2 K/uL (0.0-0.8); MONO % 3.1 % (0.0-10.0); NEUT # 6.3 K/uL (1.8-7.0); NEUT % 91.3 % (50.0-75.0); PLATELET COUNT 164 K/uL (130-400); RED CELL DISTRIBUTION WIDTH 13.4 % (11.5-14.5)
[2018-05-20 07:21] VITALS: BP 157/76; PULSE 58; TEMP 98; O2SAT 96
[2018-05-20 07:44] LABS: WHITE BLOOD COUNT 6.9 K/uL (4.8-10.8)
[2018-05-20 08:10] LABS: ALB/GLOB RATIO 1.3 (1.0-2.1); ALBUMIN 3.5 g/dL (3.5-5.0); ALT/SGPT 57 U/L (9-52); AST/SGOT 31 U/L (14-36); BILIRUBIN,DIRECT 0.4 mg/dL (0.0-0.4); BLOOD UREA NITROGEN 18 mg/dL (7-17); CALCIUM 8.9 mg/dl (8.6-10.4); GFR NON-AFRICAN AMERICAN > 60
[2018-05-20] MEDS: cefTRIAXone IV 1 gm in Dextros 50 ML IVPB SCH (09:29)
[2018-05-20 09:57] LABS: BANDS 3 % (0-2); LYMPHOCYTE 6 % (20-40); MONOCYTE 4 % (0-10); MYELOCYTE 1 % (0-0); NEUTROPHIL 83 % (50-75); PLATELET ESTIMATE NORMAL (NORMAL); REACTIVE LYMPHOCYTES 3 % (0-0); TOTAL CELLS COUNTED 100
[2018-05-20] MEDS: Azithromycin 500 MG in Sodium Chloride 0.9% 250 ML IVPB SCH (10:00)
--- NOTE | 2018-05-20 11:21 | CP.PCM.PN ---
Subjective - Date & Time of Evaluation Date of Evaluation: 05/20/18 Time of Evaluation: 11:21 - Subjective Subjective: CHIEF COMPLAINTS TODAY : AFEBRILE, FEELING BETTER. CXR 05/19/18- DONE NO ACUTE INFILTRATES ROS. HEENT : N. Resp : No hemoptysis +VE COUGH Cardio : No anginal CP, PND, orthopnea, palpitation GI : No abd.pain, n/v ,diarrhea or GI bleeding . 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 Musculoskel : No joint swelling , Derm : No rash Psych : Normal affect. Ext : No swelling ,calf pain PE. Pt. is alert awake in no distress. V.S As noted in the chart Head ,ear nose,throat and eyes : Normal. Neck : Supple with normal carotids. Lungs: B/L EXPIRATORY WHEEZE / RHONCHI . Heart : S1 & S2 normal with S4. No murmur. Abd : Soft non tender with normal bowel sounds. Neuro : Moves all ext. with no localized deficit. Ext : No edema with intact pulses.Non tender calves Derm : No rashes or decubitus ulcer. LABS/RADIOLOGY: reviewed. wbc 6.1 SPUTUM -N. LAKIA ESR 48 ASSESSMENT/PLAN : CAN SWITCH TO PO Z-PACK ON DISCHARGE . F/U OPD WITH PMD F/U LFTS CLOSELY AT PMDS OFFICE. on nebulizer TAPER OFF STEROID PER PMD Objective - Vital Signs/Intake and Output Vital Signs (last 24 hours): Temp Pulse Resp BP Pulse Ox 98 F 58 L 20 157/76 H 96 05/20/18 07:19 05/20/18 07:19 05/20/18 07:19 05/20/18 07:19 05/20/18 07:19 Intake and Output: 05/20/18 05/20/18 06:59 18:59 Intake Total 450 Balance 450 - Medications Medications: Current Medications Albuterol/Ipratropium (Duoneb 3 Mg/0.5 Mg (3 Ml) Ud) 3 ml INH RQ4 PRN PRN Reason: Shortness of Breath Last Admin: 05/15/18 12:37 Dose: 3 ml Albuterol/Ipratropium (Duoneb 3 Mg/0.5 Mg (3 Ml) Ud) 3 ml INH RQ4 [facility] Last Admin: 05/20/18 08:14 Dose: 3 ml Heparin Sodium (Porcine) (Heparin) 5,000 units SC Q12 [facility] Last Admin: 05/20/18 09:14 Dose: 5,000 units Azithromycin 500 mg/ Sodium (Chloride) 250 mls @ 250 mls/hr IVPB DAILY [facility]; Protocol Last Admin: 05/20/18 10:00 Dose: 250 mls/hr Ceftriaxone Sodium (Rocephin Iv 1 Gm Duplex) 50 mls @ 100 mls/hr IVPB Q12H [facility]; Protocol Last Admin: 05/20/18 09:29 Dose: 100 mls/hr Insulin Human Regular (Novolin R) 0 unit SC ACHS [facility]; Protocol Last Admin: 05/20/18 06:46 Dose: 6 unit Lisinopril (Zestril) 10 mg PO DAILY [facility] Last Admin: 05/20/18 09:13 Dose: 10 mg Methylprednisolone (Solu-Medrol) 40 mg IVP Q8H [facility] Last Admin: 05/20/18 07:05 Dose: 40 mg Sitagliptin Phosphate (Januvia) 50 mg PO DAILY [facility] Last Admin: 05/20/18 09:13 Dose: 50 mg Trazodone HCl (Desyrel) 100 mg PO HS [facility] Last Admin: 05/19/18 22:05 Dose: 100 mg - Labs Labs: 05/20/18 06:59 05/20/18 06:59 PT 15.1 SECONDS (9.7-12.2) H 05/14/18 20:33 INR 1.4 05/14/18 20:33 APTT 47 SECONDS (21-34) H 05/14/18 20:33 Assessment and Plan (1) Pneumonia Status: Acute (2) Fever Status: Acute (3) Asthma dependent on inhaled steroids Status: Acute (4) Diabetes mellitus Status: Acute
--- NOTE | 2018-05-20 12:50 | CP.PCM.PN ---
Subjective - Date & Time of Evaluation Date of Evaluation: 05/20/18 Time of Evaluation: 12:50 Objective - Vital Signs/Intake and Output Vital Signs (last 24 hours): Temp Pulse Resp BP Pulse Ox 98 F 58 L 20 157/76 H 96 05/20/18 07:19 05/20/18 07:19 05/20/18 07:19 05/20/18 07:19 05/20/18 07:19 Intake and Output: 05/20/18 05/20/18 06:59 18:59 Intake Total 450 Balance 450 - Medications Medications: Current Medications Albuterol/Ipratropium (Duoneb 3 Mg/0.5 Mg (3 Ml) Ud) 3 ml INH RQ4 PRN PRN Reason: Shortness of Breath Last Admin: 05/15/18 12:37 Dose: 3 ml Albuterol/Ipratropium (Duoneb 3 Mg/0.5 Mg (3 Ml) Ud) 3 ml INH RQ4 [facility] Last Admin: 05/20/18 08:14 Dose: 3 ml Heparin Sodium (Porcine) (Heparin) 5,000 units SC Q12 [facility] Last Admin: 05/20/18 09:14 Dose: 5,000 units Azithromycin 500 mg/ Sodium (Chloride) 250 mls @ 250 mls/hr IVPB DAILY [facility]; Protocol Last Admin: 05/20/18 10:00 Dose: 250 mls/hr Ceftriaxone Sodium (Rocephin Iv 1 Gm Duplex) 50 mls @ 100 mls/hr IVPB Q12H [facility]; Protocol Last Admin: 05/20/18 09:29 Dose: 100 mls/hr Insulin Human Regular (Novolin R) 0 unit SC ACHS [facility]; Protocol Last Admin: 05/20/18 12:27 Dose: 6 unit Lisinopril (Zestril) 10 mg PO DAILY [facility] Last Admin: 05/20/18 09:13 Dose: 10 mg Methylprednisolone (Solu-Medrol) 40 mg IVP Q12 [facility] Sitagliptin Phosphate (Januvia) 50 mg PO DAILY [facility] Last Admin: 05/20/18 09:13 Dose: 50 mg Trazodone HCl (Desyrel) 100 mg PO HS [facility] Last Admin: 05/19/18 22:05 Dose: 100 mg - Labs Labs: 05/20/18 06:59 05/20/18 06:59 PT 15.1 SECONDS (9.7-12.2) H 05/14/18 20:33 INR 1.4 05/14/18 20:33 APTT 47 SECONDS (21-34) H 05/14/18 20:33 Assessment and Plan - Assessment and Plan (Free Text) Assessment: FOLLOW UP WITH DR HUDSON IN 1-2 WEEKS -----CALL FOR APPOINTMENT FOLLOW UP WITH DR GARRETT IN HER OFFICE ----CALL FOR APPOINTMENT CONTINUE HOME MEDICATION NEW PRESCRIPTION GIVEN Z PACK PO DAILY DIRECTED LISINOPRIL 10 MG PO DAILY MEDROL DOSE PACK PO DIRECTED JANUVIA 50 MG PO DAILY ACTIVITY TOLERATED CALL DR HUDSON OR GO TO THE EMERGENCY ROOM IF SYMPTOM RETURN OR WORSENING
[2018-05-20] MEDS ORDERED: MethylPREDNISolone 40 mg Vial IVP SCH (22:00)
== END 2018-05-20 14:37 | disposition home or self-care (01) | DRG 190 ==
LOC: C.ER 18:16 → C.9E 23:20 → C.3T 05-15 15:10
PROVIDERS: ADMIT Internal Medicine Cardiovascular Disease; ATTEND Internal Medicine Cardiovascular Disease
DX: J44.0 Chronic obstructive pulmonary disease with (acute) lower respiratory infection (principal); J18.9 Pneumonia, unspecified organism; J45.901 Unspecified asthma with (acute) exacerbation; J20.9 Acute bronchitis, unspecified; J44.1 Chronic obstructive pulmonary disease with (acute) exacerbation; F17.210 Nicotine dependence, cigarettes, uncomplicated; I10 Essential (primary) hypertension; E11.9 Type 2 diabetes mellitus without complications